=== PATIENT | male | born 1965 | race Caucasian/White ===

== ENCOUNTER 2016-09-08 15:29 | Emergency (ER) | payer SELFPAY ==
[2016-09-08 15:45] LABS: Basophils % (Auto) 1.1 % (0.0-1.8); Eosinophils % (Auto) 1.1 % (0.0-4.3); Hematocrit 50.5 % (35.5-45.6); Hemoglobin 16.9 gm/dl (11.8-15.2); Mean Corpuscular HGB Conc 33 % (32-34); Mean Corpuscular Hemoglobin 27 pg (28-32); Mean Corpuscular Volume 81 fl (84-94); Platelet Count 262 K/mm3 (140-440); Red Blood Count 6.22 M/mm3 (3.65-5.03); Red Cell Distribution Width 13.3 % (13.2-15.2); White Blood Count 7.8 K/mm3 (4.5-11.0)
--- NOTE | 2016-09-08 15:45 | Emergency Department Report ---
ED Neuro Deficit HPI - General Chief Complaint: Neuro Symptoms/Deficit Stated Complaint: POSS STROKE Time Seen by Provider: 09/08/16 15:37 Source: patient Mode of arrival: Wheelchair Limitations: Language Barrier (cordwainer elan witt) - History of Present Illness Initial Comments: This is a 51-year-old male. He is previously unknown to me. States no past medical history. No chronic medical conditions. Reports she does not have a primary care doctor. Patient presents to the ER complaining of right upper extremity weakness, right lower extremity weakness. Last known well [place] 1:30 PM. Patient reports that he went to sleep, woke up, and approximately 45 minutes prior to presentation, was found to have right upper extremity, right lower extremity weakness and numbness. There is no pain. Symptoms are constant. They have no exacerbating or relieving factors. Fingerstick was 131. code stroke was called overhead. -: Gradual Location: right arm, right leg Presenting Symptoms: Present: Weak/Paralyzed One Side History of same: No Place: home Severity: severe Quality: weak, numb Improves With: none Worsens With: none On Anticoagulants: No Context: gradual onset Associated Symptoms: denies other symptoms Treatments Prior to Arrival: none - Related Data Home Medications: Home Medications Medication Instructions Recorded Confirmed Last Taken No Known Home Medications [No 09/08/16 09/08/16 Unknown Reported Home Medications] Allergies/Adverse Reactions: Allergies Allergy/AdvReac Type Severity Reaction Status Date / Time No Known Allergies Allergy Unverified 09/08/16 15:31 ED Review of Systems ROS: Stated complaint: POSS STROKE Other details as noted in HPI Constitutional: weakness Eyes: denies: vision change ENT: denies: epistaxis Respiratory: denies: cough Cardiovascular: denies: chest pain Gastrointestinal: denies: abdominal pain Genitourinary: denies: urgency, dysuria Musculoskeletal: denies: myalgia Neurological: weakness, numbness, paresthesias Psychiatric: as per HPI ED Past Medical Hx - Past Medical History Previous Medical History?: No - Surgical History Past Surgical History?: No - Social History Smoking Status: Never Smoker Substance Use Type: None - Medications Home Medications: Home Medications Medication Instructions Recorded Confirmed Last Taken Type No Known Home Medications [No 09/08/16 09/08/16 Unknown History Reported Home Medications] ED Neuro Physical Exam - General Limitations: Physical Limitation General appearance: alert, in no apparent distress Suspected Stroke: Yes - Head Head exam: Present: atraumatic, normocephalic - Eye Eye exam: Present: normal appearance, EOMI. Absent: nystagmus - ENT ENT exam: Present: normal exam, normal orophraynx, mucous membranes moist, normal external ear exam - Neck Neck exam: Present: normal inspection, full ROM. Absent: tenderness, meningismus - Respiratory Respiratory exam: Present: normal lung sounds bilaterally. Absent: respiratory distress, wheezes, rales, rhonchi, stridor, chest wall tenderness - Cardiovascular Cardiovascular Exam: Present: regular rate, normal rhythm, normal heart sounds. Absent: bradycardia, tachycardia, irregular rhythm, systolic murmur, diastolic murmur, rubs, gallop - GI/Abdominal GI/Abdominal exam: Present: soft, normal bowel sounds. Absent: distended, tenderness, guarding, rebound, rigid - Rectal Rectal exam: Present: deferred - Extremities Exam Extremities exam: Present: normal inspection, normal capillary refill. Absent: full ROM, pedal edema, joint swelling, calf tenderness - Back Exam Back exam: Present: normal inspection, full ROM. Absent: tenderness, CVA tenderness (R), CVA tenderness (L), muscle spasm, paraspinal tenderness, vertebral tenderness - Neurological Exam Neurological exam: Present: alert, motor sensory deficit - NIHSS Assessment Interval: Baseline 1a. Level of Consciousness: alert 1b. LOC Questions: answers correctly 1c. LOC Commands: performs tasks correctly 2. Best Gaze: normal 3. Visual: no visual loss 4. Facial Palsy: normal symmetrical movement 5b. Motor Arm Right: some gravity effort 5a. Motor Arm Left: no drift 6a. Motor Leg Left: no drift 6b. Motor Leg Right: some gravity effort 7. Limb Ataxia: present 1 limb 8. Sensory: mild/moderate sensory loss 9. Best Language: no aphasia 10. Dysarthria: normal 11. Extinction/Inattention: no abnormality Total Score: 6 Stroke Severity: Moderate Stroke - Psychiatric Psychiatric exam: Present: normal affect, normal mood - Skin Skin exam: Present: warm, dry, intact, normal color. Absent: rash ED Course Vital Signs 09/08/16 09/08/16 09/08/16 15:47 15:50 16:00 Pulse Rate 82 84 108 H Respiratory 19 13 20 Rate Blood Pressure 225/139 206/125 O2 Sat by Pulse 98 98 97 Oximetry 09/08/16 09/08/16 09/08/16 16:01 16:04 16:06 Pulse Rate 114 H 108 H 107 H Respiratory 16 18 26 H Rate Blood Pressure 206/125 206/125 206/125 O2 Sat by Pulse 99 98 97 Oximetry 09/08/16 09/08/16 09/08/16 16:08 16:10 16:12 Pulse Rate 113 H 116 H 115 H Respiratory 29 H 29 H 19 Rate Blood Pressure 206/125 206/125 206/125 O2 Sat by Pulse 97 97 98 Oximetry 09/08/16 09/08/16 09/08/16 16:14 16:15 16:16 Pulse Rate 116 H 115 H 111 H Respiratory 24 23 24 Rate Blood Pressure 206/125 179/92 179/92 O2 Sat by Pulse 98 95 96 Oximetry 09/08/16 09/08/16 09/08/16 16:18 16:20 16:22 Pulse Rate 111 H 109 H 107 H Respiratory 26 H 19 23 Rate Blood Pressure 179/92 179/92 179/92 O2 Sat by Pulse 96 99 96 Oximetry 09/08/16 09/08/16 09/08/16 16:24 16:26 16:28 Pulse Rate 105 H 107 H 108 H Respiratory 15 15 11 L Rate Blood Pressure 179/92 179/92 206/125 O2 Sat by Pulse 98 97 99 Oximetry 09/08/16 09/08/16 09/08/16 16:30 16:32 16:34 Pulse Rate 102 H 111 H 111 H Respiratory 23 17 19 Rate Blood Pressure 150/84 150/84 150/84 O2 Sat by Pulse 96 97 99 Oximetry 09/08/16 09/08/16 09/08/16 16:36 16:38 16:40 Pulse Rate 112 H 111 H 115 H Respiratory 20 25 H 13 Rate Blood Pressure 150/84 150/84 150/84 O2 Sat by Pulse 96 97 96 Oximetry 09/08/16 09/08/16 09/08/16 16:42 16:44 16:45 Pulse Rate 108 H 112 H 107 H Respiratory 22 20 22 Rate Blood Pressure 150/84 150/84 145/89 O2 Sat by Pulse 97 96 95 Oximetry 09/08/16 09/08/16 09/08/16 16:46 16:48 16:50 Pulse Rate 112 H 117 H 128 H Respiratory 20 16 18 Rate Blood Pressure 145/89 145/89 145/89 O2 Sat by Pulse 96 98 99 Oximetry 09/08/16 09/08/16 09/08/16 16:52 16:54 16:56 Pulse Rate 121 H 113 H 113 H Respiratory 16 18 27 H Rate Blood Pressure 145/89 145/89 145/89 O2 Sat by Pulse 97 98 97 Oximetry 09/08/16 09/08/16 09/08/16 16:58 17:00 17:02 Pulse Rate 118 H 111 H 108 H Respiratory 16 11 L 27 H Rate Blood Pressure 145/89 150/96 150/96 O2 Sat by Pulse 97 100 96 Oximetry 09/08/16 09/08/16 09/08/16 17:04 17:06 17:08 Pulse Rate 106 H 114 H 107 H Respiratory 11 L 18 13 Rate Blood Pressure 150/96 150/96 150/96 O2 Sat by Pulse 97 97 98 Oximetry 09/08/16 09/08/16 09/08/16 17:10 17:12 17:14 Pulse Rate 110 H 109 H 112 H Respiratory 22 20 21 Rate Blood Pressure 150/96 150/96 150/96 O2 Sat by Pulse 95 98 98 Oximetry 09/08/16 09/08/16 17:15 17:16 Pulse Rate 115 H 112 H Respiratory 15 17 Rate Blood Pressure 157/130 157/130 O2 Sat by Pulse 96 97 Oximetry - Reevaluation(s) Reevaluation #1: 09/08/16 15:54 Differential diagnosis: Hemorrhagic stroke, ischemic stroke Assessment and plan: 51-year-old male who presents to the ER with right-sided weakness and numbness. In noncontrast CT scan of the brain demonstrates intracerebral bleed/hematoma. Therefore, the patient is not a TPA/thrombolysis candidate. The patient currently has a GCS of 15. He is found to be markedly hypertensive. He is protecting his airway. keppra ordered prophylactically. Nicardipine drip is ordered. Currently, I have placed a page to be [facility] to transfer the patient for definitive management, as this hospital does not have neurosurgery or neuro critical care of elbow. Patient's head will be elevated 30. 09/08/16 15:55 Reevaluation #2: 09/08/16 16:15 Case is discussed with Dr. Bib León, neuro [facility] [place], who graciously accepts the patient as a transfer. Recommends goal systolic blood pressure 160. - Lab Data Result diagrams: 09/08/16 15:35 09/08/16 15:35 Lab Results 09/08/16 09/08/16 09/08/16 Range/Units 15:35 15:35 15:41 WBC 7.8 (4.5-11.0) K/mm3 RBC 6.22 H (3.65-5.03) M/mm3 Hgb 16.9 H (11.8-15.2) gm/dl Hct 50.5 H (35.5-45.6) % MCV 81 L (84-94) fl MCH 27 L (28-32) pg MCHC 33 (32-34) % RDW 13.3 (13.2-15.2) % Plt Count 262 (140-440) K/mm3 Lymph % (Auto) 31.2 (13.4-35.0) % [place] % (Auto) 10.2 H (0.0-7.3) % Eos % (Auto) 1.1 (0.0-4.3) % Baso % (Auto) 1.1 (0.0-1.8) % Lymph # 2.4 (1.2-5.4) K/mm3 [place] # 0.8 (0.0-0.8) K/mm3 Eos # 0.1 (0.0-0.4) K/mm3 Baso # 0.1 (0.0-0.1) K/mm3 Seg Neutrophils % 56.4 (40.0-70.0) % Seg Neutrophils # 4.4 (1.8-7.7) K/mm3 PT (12.2-14.9) Sec. INR (0.87-1.13) APTT (24.2-36.6) Sec. Thrombin Time (15.1-19.6) Sec. Sodium 143 (137-145) mmol/L Potassium 3.9 (3.6-5.0) mmol/L Chloride 97.4 L (98-107) mmol/L Carbon Dioxide 28 (22-30) mmol/L Anion Gap 22 mmol/L BUN 13 (9-20) mg/dL Creatinine 0.7 L (0.8-1.5) mg/dL Estimated GFR > 60 ml/min BUN/Creatinine Ratio 18.57 % Glucose 151 H (75-100) mg/dL POC Glucose 131 H (70-105) Calcium 9.3 (8.4-10.2) mg/dL Troponin T < 0.010 (0.00-0.029) ng/mL 09/08/16 09/08/16 Range/Units 16:14 16:14 WBC (4.5-11.0) K/mm3 RBC (3.65-5.03) M/mm3 Hgb (11.8-15.2) gm/dl Hct (35.5-45.6) % MCV (84-94) fl MCH (28-32) pg MCHC (32-34) % RDW (13.2-15.2) % Plt Count (140-440) K/mm3 Lymph % (Auto) (13.4-35.0) % [place] % (Auto) (0.0-7.3) % Eos % (Auto) (0.0-4.3) % Baso % (Auto) (0.0-1.8) % Lymph # (1.2-5.4) K/mm3 [place] # (0.0-0.8) K/mm3 Eos # (0.0-0.4) K/mm3 Baso # (0.0-0.1) K/mm3 Seg Neutrophils % (40.0-70.0) % Seg Neutrophils # (1.8-7.7) K/mm3 PT 13.1 (12.2-14.9) Sec. INR 1.00 (0.87-1.13) APTT 27.5 (24.2-36.6) Sec. Thrombin Time 16.6 (15.1-19.6) Sec. Sodium (137-145) mmol/L Potassium (3.6-5.0) mmol/L Chloride (98-107) mmol/L Carbon Dioxide (22-30) mmol/L Anion Gap mmol/L BUN (9-20) mg/dL Creatinine (0.8-1.5) mg/dL Estimated GFR ml/min BUN/Creatinine Ratio % Glucose (75-100) mg/dL POC Glucose (70-105) Calcium (8.4-10.2) mg/dL Troponin T (0.00-0.029) ng/mL Lab Results 09/08/16 09/08/16 Range/Units 15:35 15:41 WBC 7.8 (4.5-11.0) K/mm3 RBC 6.22 H (3.65-5.03) M/mm3 Hgb 16.9 H (11.8-15.2) gm/dl Hct 50.5 H (35.5-45.6) % MCV 81 L (84-94) fl MCH 27 L (28-32) pg MCHC 33 (32-34) % RDW 13.3 (13.2-15.2) % Plt Count 262 (140-440) K/mm3 Lymph % (Auto) 31.2 (13.4-35.0) % [place] % (Auto) 10.2 H (0.0-7.3) % Eos % (Auto) 1.1 (0.0-4.3) % Baso % (Auto) 1.1 (0.0-1.8) % Lymph # 2.4 (1.2-5.4) K/mm3 [place] # 0.8 (0.0-0.8) K/mm3 Eos # 0.1 (0.0-0.4) K/mm3 Baso # 0.1 (0.0-0.1) K/mm3 Seg Neutrophils % 56.4 (40.0-70.0) % Seg Neutrophils # 4.4 (1.8-7.7) K/mm3 POC Glucose 131 H (70-105) When compared to previous EKG there are: previous EKG unavailable 09/08/16 17:12 EKG done showed sinus tachycardia, 120 bpm, QTC 180 ms, nonspecific ST abnormality, not morphologically consistent with STEMI. - Radiology Data Radiology results: report reviewed, image reviewed interpreted by me: CT scan of the brain demonstrates left-sided basal ganglia hemorrhage. - Core Measures Measure Exclusions: not indicated - Thrombolytic Inclusion/Exclusion Thrombolytic Contraindications: Hx of ICH/AVM/Aneurysms (found to have intracranial bleed in ER), Systolic Pressure > 185 Critical Care Time: Yes Critical care time in (mins) excluding proc time.: 45 Critical care attestation.: If time is entered above; I have spent that time in minutes in the direct care of this critically ill patient, excluding procedure time. ED Disposition Clinical Impression: Hemorrhagic stroke Disposition: DC/TX SHORT-TERM GEN HOSP INPT Is pt being admited?: No Does the pt Need Aspirin: No Condition: Critical Referrals: PRIMARY CARE, [Primary Care Provider] - 3-5 Days
--- NOTE | 2016-09-08 15:53 | Cat Scan Report ---
CT scan of head without contrast: History: Neural deficit. Findings: Ventricles are normal in size and midline in location. There is a left intracerebral basal ganglia hematoma measuring 2.9 x 1.5 cm. No extra-axial fluid collection. Normal brainstem and cerebellum. Normal sinuses and mastoid air cells. Impression: Left basal ganglia intracerebral hematoma. Dr. Lugo was informed of the findings at 3: 50 PM on 09/08/16. 98N.
[2016-09-08] MEDS ORDERED: KEPPRA 1,000 MG in D5W 100 ML IV ONE (15:54)
[2016-09-08] MEDS ORDERED: CARDENE DRIP 40 MG/200 ML 40 MG/200 ML BAG IV SCH (16:00)
[2016-09-08] MEDS ORDERED: KEPPRA 1,000 MG/NS 0.75% 100ML 1,000 MG/100 ML BAG IV ONE (16:03)
[2016-09-08 16:25] LABS: Anion Gap 22 mmol/L; BUN/Creatinine Ratio 18.57; Blood Urea Nitrogen 13 mg/dL (9-20); Calcium 9.3 mg/dL (8.4-10.2); Carbon Dioxide 28 mmol/L (22-30); Chloride 97.4 mmol/L (98-107); Glucose 151 mg/dL (75-100); Potassium 3.9 mmol/L (3.6-5.0); Sodium 143 mmol/L (137-145)
[2016-09-08 16:39] LABS: Partial Thromboplastin Time 27.5 Sec. (24.2-36.6)
[2016-09-08 17:38] VITALS: BP 157/130
== END 2016-09-08 17:30 | disposition short-term general hospital (02) ==
LOC: ED 15:29
DX: I61.9 Nontraumatic intracerebral hemorrhage, unspecified (principal)
CPT/HCPCS: 36415; 70450; 80048; 82962; 84484; 85025; 85610; 85670; 85730; 93005; 93010; 96365; 96366; 96367; 99291; J1953